=== PATIENT | male | born 2000 | race Caucasian/White ===

== ENCOUNTER 2023-10-05 03:00 | Emergency (ER) | payer BC, SELFPAY | END 2023-10-05 05:14 | disposition home or self-care (01) | LOC: ERS 03:00 | DX: S06.0X0A Concussion without loss of consciousness, initial encounter (principal); S01.01XA Laceration without foreign body of scalp, initial encounter; R03.0 Elevated blood-pressure reading, without diagnosis of hypertension; Y04.0XXA Assault by unarmed brawl or fight, initial encounter | CPT/HCPCS: 12001; 36416; 70450; 72125 ==